=== PATIENT | female | born 1975 | race Caucasian/White ===

== ENCOUNTER 2016-11-26 08:11 | Emergency (ER) | payer BC, OTHER ==
--- NOTE | 2016-11-26 08:30 | Emergency Department Record ---
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 Patient reports that she attempted to catch the patient during a fall, and hyper- extended the thumb dorsally. Patient reports that her pain symptoms worsen with extension of the thumb, have mildly improved over the weekend. Patient denies health problems at her baseline. MD Complaint: Extremity pain Onset/Timin -: Days(s) Location: Left, Hand Radiation: None Severity scale (1-10): 4 Quality: Aching, Sharp Consistency: Constant Improves with: Nothing Worsens with: Exertion, Palpation, Weight bearing Associated Symptoms: Denies other symptoms - Related Data Home Medications Medication Instructions Recorded Confirmed Last Taken No Home Med [NO HOME MEDS] 11/26/16 11/26/16 Unknown Allergies Allergy/AdvReac Type Severity Reaction Status Date / Time No Known Drug Allergies Allergy Verified 05/05/14 11:18 Travel Screening - Travel/Exposure Within Last 30 Days Have you traveled within the last 30 days?: No Review of Systems Constitutional: Denies: Chills, Fever, Malaise, Night sweats Eyes: Denies: Eye discharge, Eye pain ENT: Denies: Congestion, Ear pain, Epistaxis Respiratory: Denies: Cough, Dyspnea Cardiovascular: Denies: Chest pain, Dyspnea on exertion Endocrine: Denies: Fatigue, Heat or cold intolerance Gastrointestinal: Denies: Abdominal pain, Nausea, Vomiting Genitourinary: Denies: Incontinence, Retention Musculoskeletal: Reports: Arthralgia. Denies: Back pain, Gout, Joint swelling Skin: Denies: Bruising, Change in color Neurological: Denies: Abnormal gait, Confusion, Headache Psychiatric: Denies: Anxiety Hematological/Lymphatic: Denies: Anemia, Blood Clots Past Medical History - SOCIAL HISTORY Smoking Status: Never smoker Alcohol Use: None Drug Use: None - RESPIRATORY Hx Respiratory Disorders: No - CARDIOVASCULAR Hx Cardio Disorders: Yes Comment:: mitral valve prolapse - NEURO Hx Neuro Disorders: No - GI Hx GI Disorders: Yes Hx Diverticulitis: Yes - Hx Genitourinary Disorders: Yes Hx Kidney Stones: Yes - ENDOCRINE Hx Endocrine Disorders: No - MUSCULOSKELETAL Hx Musculoskeletal Disorders: No - PSYCH Hx Psych Problems: No - HEMATOLOGY/ONCOLOGY Hx Hematology/Oncology Disorders: No Family Medical History Any Significant Family History?: No Physical Exam - General General Appearance: Alert, Oriented x3, Cooperative, No acute distress Limitations: No limitations - Head Head exam: Atraumatic, Normocephalic, Normal inspection Head exam detail: negative: Abrasion, Contusion, Araiza's sign, General tenderness, Hematoma, Laceration - Eye Eye exam: Normal appearance. negative: Conjunctival injection, Periorbital swelling, Periorbital tenderness, Scleral icterus - ENT Ear exam: negative: Auricular hematoma, Auricular trauma Nasal Exam: negative: Active bleeding, Discharge, Dried blood, Foreign body Mouth exam: negative: Drooling, Laceration, Muffled voice, Tongue elevation - Neck Neck exam: Normal inspection. negative: Meningismus, Tenderness - Respiratory Respiratory exam: Normal lung sounds bilaterally. negative: Respiratory distress, Rhonchi, Stridor, Wheezes - Cardiovascular Cardiovascular Exam: Regular rate, Normal rhythm, Normal heart sounds Peripheral Pulses: 3+: Radial (L) - GI/Abdominal GI/Abdominal exam: Soft. negative: Rebound, Rigid, Tenderness - Rectal Rectal exam: Deferred - exam: Deferred - Extremities Extremities exam: Tenderness, Other (ROM limited by pain, tendon fuinction is intact. No STS, pain is present with extension of the thumb proximally.). negative: Calf tenderness, Pedal edema - Back Back exam: Denies: CVA tenderness (R), CVA tenderness (L) - Neurological Neurological exam: Alert, Normal gait, Oriented X3 - Psychiatric Psychiatric exam: Normal affect, Normal mood. negative: Anxious - Skin Skin exam: Normal color. negative: Abrasion Type of lesion: negative: abrasion Course Vital Signs 11/26/16 08:13 Temperature 97.9 F Pulse Rate 70 Respiratory 18 Rate Blood Pressure 160/80 Pulse Ox 100 - Reevaluation(s) Reevaluation #1: 11/26/16 09:25 Left thumb: No acute fracture or dislocation Patient was updated on all results, was counseled to continue gentle use of the thumb. Patient verbalizes understanding of all instructions, and appears stable for discharge at this time. Disposition Disposition: Discharge Clinical Impression: Strain of thumb, left Disposition: Home, Self-Care Condition: (2) Stable Instructions: Finger Sprain (ED) Additional Instructions: Return to ED if your symptoms worsen or if you have any concerns. Ibuprofen as needed for your symptoms. Follow-up with [facility] in 3-5 days for further evaluation. Forms: Patient Portal Access Time of Disposition: 09:26
--- NOTE | 2016-11-26 09:23 | RADIOLOGY REPORT ---
EXAM: THUMB, LEFT HISTORY: LATERAL LEFT THUMB PAIN FOUR DAYS POST INJURY. TECHNIQUE: Three views of the left thumb. COMPARISON: None. ENCOUNTER: Initial. FINDINGS: There is normal bone mineralization. No acute fracture, dislocation, or destructive bone lesion is seen. No focal soft tissue abnormality is identified. IMPRESSION: NO ACUTE FRACTURE, NOR DISLOCATION IDENTIFIED. JOB NUMBER: [id number] MTDD
== END 2016-11-26 09:15 | disposition home or self-care (01) ==
LOC: ER 08:11
DX: S63.602A Unspecified sprain of left thumb, initial encounter (principal); X50.0XXA Overexertion from strenuous movement or load, initial encounter; Y93.F9 Activity, other caregiving; Y92.238 Other place in hospital as the place of occurrence of the external cause; Y99.0 Civilian activity done for income or pay
CPT/HCPCS: 99283

== ENCOUNTER 2018-11-25 07:32 | Emergency (ER) | payer BC, OTHER ==
[2018-11-25] MEDS ORDERED: AL HYDROX/MAG HYDROX 30ML UD PO ONE (07:45)
--- NOTE | 2018-11-25 07:51 | Emergency Department Record ---
History of Present Illness - General Chief complaint: Flank Pain Stated complaint: FLANK PAIN Time Seen by Provider: 11/25/18 07:38 Source: Patient, RN notes reviewed - History of Present Illness Initial comments: right flank pain on and off for one week and history of kidney stones and some nausea initially and she does have lose of appetite and her last urologist was in [place] 2002. Stone removal in 2002 and the stones since than pass spontaneously. Patient denies and had a vasectomy. Patient : No - Related Data Previous Rx's Medication Instructions Recorded Hydrocodone/Acetaminophen [[place] 1 each PO Q6HR #10 tablet 11/25/18 5-325 Tablet] Allergies Allergy/AdvReac Type Severity Reaction Status Date / Time No Known Drug Allergies Allergy Verified 05/05/14 11:18 Review of Systems Reviewed: No additional complaints except as noted below Constitutional: Reports: As per HPI. Denies: Chills, Fever, Malaise, Night sweats, Weakness, Weight change Eyes: Reports: As per HPI. Denies: Eye discharge, Eye pain, Photophobia, Vision change ENT: Reports: As per HPI. Denies: Congestion, Dental pain, Ear pain, Epistaxis, Hearing loss, Throat pain Respiratory: Reports: As per HPI. Denies: Cough, Dyspnea, Hemoptysis, Stridor, Wheezes Cardiovascular: Reports: As per HPI. Denies: Arrhythmia, Chest pain, Dyspnea on exertion, Edema, Murmurs, Orthopnea, Palpitations, Paroxysmal nocturnal dyspnea, Rheumatic Fever, Syncope Endocrine: Reports: As per HPI. Denies: Fatigue, Heat or cold intolerance, Polydipsia, Polyuria Gastrointestinal: Reports: As per HPI, Abdominal pain. Denies: Constipation, Diarrhea, Hematemesis, Hematochezia, Melena, Nausea, Vomiting Genitourinary: Reports: As per HPI. Denies: Abnormal menses, Discharge, Dyspareunia, Dysuria, Frequency, Hematuria, Incontinence, Retention, Urgency Musculoskeletal: Reports: As per HPI. Denies: Arthralgia, Back pain, Gout, Joint swelling, Myalgia, Neck pain Skin: Reports: As per HPI. Denies: Bruising, Change in color, Change in hair/nails, Lesions, Pruritus, Rash Neurological: Reports: As per HPI. Denies: Abnormal gait, Confusion, Headache, Numbness, Paresthesias, Seizure, Tingling, Tremors, Vertigo, Weakness Psychiatric: Reports: As per HPI. Denies: Anxiety, Auditory hallucinations, Depression, Homicidal thoughts, Suicidal thoughts, Visual hallucinations Hematological/Lymphatic: Reports: As per HPI. Denies: Anemia, Blood Clots, Easy bleeding, Easy bruising, Swollen glands Past Medical History - SOCIAL HISTORY Smoking Status: Never smoker Drug Use: None - RESPIRATORY Hx Respiratory Disorders: No - CARDIOVASCULAR Hx Cardio Disorders: Yes Comment:: mitral valve prolapse - NEURO Hx Neuro Disorders: No - GI Hx GI Disorders: Yes Hx Diverticulitis: Yes - Hx Genitourinary Disorders: Yes Hx Kidney Stones: Yes - ENDOCRINE Hx Endocrine Disorders: No - MUSCULOSKELETAL Hx Musculoskeletal Disorders: No - PSYCH Hx Psych Problems: No - HEMATOLOGY/ONCOLOGY Hx Hematology/Oncology Disorders: No Physical Exam - General General Appearance: Alert, Oriented x3, Cooperative, No acute distress - Head Head exam: Normal inspection - Eye Eye exam: Normal appearance, PERRL Pupils: Normal accommodation - ENT ENT exam: Normal exam, Mucous membranes moist, Normal external ear exam, Normal orophraynx, TM's normal bilaterally Ear exam: Normal external inspection. negative: External canal tenderness Nasal Exam: Normal inspection. negative: Discharge, Sinus tenderness Mouth exam: Normal external inspection, Tongue normal Teeth exam: Normal inspection. negative: Dental caries Throat exam: Normal inspection. negative: Tonsillar erythema, Tonsillar exudate - Neck Neck exam: Normal inspection, Full ROM. negative: Tenderness - Respiratory Respiratory exam: Normal lung sounds bilaterally. negative: Respiratory distress - Cardiovascular Cardiovascular Exam: Regular rate, Normal rhythm, Normal heart sounds - GI/Abdominal GI/Abdominal exam: Soft, Normal bowel sounds, Tenderness (right flank pain and right upper quad pain) - Rectal Rectal exam: Deferred - exam: Deferred - Extremities Extremities exam: Normal inspection, Full ROM, Normal capillary refill. negative: Tenderness - Back Back exam: Reports: Normal inspection, Full ROM. Denies: Muscle spasm, Rash noted, Tenderness - Neurological Neurological exam: Alert, Normal gait, Oriented X3, Reflexes normal - Psychiatric Psychiatric exam: Normal affect, Normal mood - Skin Skin exam: Dry, Intact, Normal color, Warm Medical Decision Making - Data Complexity MDM Data: Labs Ordered and/or Reviewed (neg labs ,urine neg), X-Ray Ordered and/or Reviewed (bilateral kidney stones not obstructing, cholliathiasis, right kidney stone 3 mm) - Lab Data Result diagrams: 11/25/18 07:56 11/25/18 07:56 Disposition Clinical Impression: Right flank pain, Right upper quadrant pain, Biliary colic Disposition: Home, Self-Care Condition: (1) Good Instructions: Biliary Colic (ED), Abdominal Pain (ED) Additional Instructions: follow up with Dr Krishna in 2 weeks follow up with Dr. Martinez in 2 weeks return to ED if worse tylenol for pain and avoid greasy foods Prescriptions: Hydrocodone/Acetaminophen [[place] 5-325 Tablet] 1 each PO Q6HR #10 tablet Referrals: [facility] [Provider Group] Dg Martinez [DOCTOR OF OSTEOPATH] - Forms: Patient Portal Access Time of Disposition: 09:05 Quality - Quality Measures Quality Measures: N/A - Blood Pressure Screening Does Patient Have Any of the Following: No Blood Pressure Classification: Hypertensive Reading Systolic Measurement: 197 Diastolic Measurement: 115 Screening for High Blood Pressure: < First Hypertensive BP, F/U Documented > [G8950] First Hypertensive Follow-up Interventions: Referral to alternative/primary care provider.
[2018-11-25 08:01] LABS: ABSOLUTE NEUTROPHIL COUNT 4.88; BASO % 0.5 % (0-6); EOS % 2.6 % (0-6); HEMATOCRIT 43.5 % (35.0-47.0); HEMOGLOBIN 14.6 gm/dl (11.6-16.0); LYMPH % 24.9 % (16-45); MEAN CELL VOLUME 94.2 fl (81-97); MEAN CORPUSCULAR HEMOGLOBIN 31.6 pg (27-33); MEAN CORPUSCULAR HGB CONC 33.6 g/dl (32-36); MEAN PLATELET VOLUME 9.3 fl (7.4-10.4); PLATELET COUNT 349 K/uL (130-400); RED BLOOD COUNT 4.62 M/uL (3.80-5.40); RED CELL DISTRIBUTION WIDTH 12.5 % (11.5-14.5); WHITE BLOOD COUNT W/O DIFF 7.6 K/uL (4.2-12.2)
[2018-11-25 08:05] LABS: URINE APPEARANCE CLEAR; URINE BILIRUBIN NEGATIVE (NEGATIVE); URINE BLOOD NEGATIVE (NEGATIVE); URINE COLOR YELLOW; URINE GLUCOSE (UA) NEGATIVE (NEGATIVE); URINE KETONE NEGATIVE (NEGATIVE); URINE LEUKOCYTE ESTERASE NEGATIVE (NEGATIVE); URINE NITRITE NEGATIVE (NEGATIVE); URINE PROTEIN NEGATIVE (NEGATIVE); URINE UROBILINOGEN 0.2 E.U./dL (0.20 - 1.00)
[2018-11-25 08:15] LABS: BLOOD UREA NITROGEN 9 mg/dL (6-20); CREATININE 0.6 mg/dL (0.5-0.9); EST GLOMERULAR FILTRATION RATE > 60 mL/min
[2018-11-25 08:17] LABS: LIPASE 28 U/L (13-60); TOTAL PROTEIN 7.1 g/dL (6.6-8.7)
[2018-11-25 08:18] LABS: GLUCOSE,RANDOM 88 mg/dL (74-109)
[2018-11-25 08:21] LABS: ALT/SGPT 13 U/L (<33)
[2018-11-25 08:22] LABS: ALBUMIN 4.6 g/dL (4.0-5.0); ALKALINE PHOSPHATASE 78 U/L (35-104); AST/SGOT 16 U/L (10.0-35.0)
[2018-11-25 08:24] LABS: BILIRUBIN,DIRECT < 0.2 mg/dL (0-0.3)
--- NOTE | 2018-11-26 19:32 | CT SCAN REPORT ---
EXAM: CT SCAN ABDOMEN/PELVIS WO CONTRAST HISTORY: WORSENING RIGHT FLANK PAIN RADIATING TO RIGHT LOWER QUADRANT FOR THREE DAYS. PREVIOUS RENAL CALCULUS. TECHNIQUE: Thin-collimation helical CT examination of the abdomen and pelvis is performed without oral or intravenous contrast administration. Lack of oral and IV contrast utilization limits evaluation of the bowel and solid viscera, respectively. COMPARISON: CT abdomen and pelvis with contrast dated 07/09/2013. FINDINGS: There is minimal dependent atelectasis in each lung base. The lung bases are otherwise clear and there is no pleural or pericardial effusion. The heart is not enlarged. The liver, spleen, pancreas, and adrenal glands are normal in appearance. A few tiny dependent gallstones are present without gallbladder wall thickening or pericholecystic fluid. No biliary ductal dilatation. The kidneys are normal in size, position, and are smoothly marginated. There are two or three nonobstructing calculi within the right kidney and a single tiny nonobstructing calculus in the lower pole of the left kidney. The largest calculus on the right is located at the mid level measuring 3.8 mm in maximum diameter. No renal mass. No evidence of obstructive uropathy. No ureteral calculus is identified. No intrinsic urinary bladder abnormality is seen. No suspicious pelvic mass. A small follicle is suggested within the left ovary. No free pelvic fluid. The vascular, as visualized, is unremarkable. No intraabdominal nor retroperitoneal lymphadenopathy is seen, though there are a few nonenlarged periaortic lymph nodes again demonstrated. No gross bowel dilatation nor bowel wall thickening. There is diverticulosis of the distal colon without evidence of diverticulitis. The appendix is visualized and normal in appearance. No free intraperitoneal air. The abdominal wall is intact. No lytic or blastic bone lesion is seen. IMPRESSION: 1. BILATERAL NEPHROLITHIASIS. NO OBSTRUCTIVE UROPATHY. 2. CHOLELITHIASIS WITHOUT CT EVIDENCE OF ACUTE CHOLECYSTITIS. COLONIC DIVERTICULOSIS, MOST PRONOUNCED IN THE SIGMOID REGION WITHOUT DIVERTICULITIS. NORMAL APPENDIX. 3. PROBABLE SMALL FOLLICLE WITHIN THE LEFT OVARY. J[facility]BER: [id number] [facility]
== END 2018-11-25 09:18 | disposition home or self-care (01) ==
LOC: ER 07:32
DX: K80.50 Calculus of bile duct without cholangitis or cholecystitis without obstruction (principal); R10.11 Right upper quadrant pain; R11.0 Nausea; Z87.442 Personal history of urinary calculi
CPT/HCPCS: 74176; 80048; 80076; 81003; 83690; 85025; 99283; 99284